=== PATIENT | male | born 1985 | race African-American/Black ===

== ENCOUNTER 2017-12-16 00:36 | Emergency (ER) | payer MEDICARE, MEDICAID ==
[~2017-12-16] VITALS: Ht 182.9 cm; Wt 79.8 kg
[~2017-12-16 00:36] MED LIST: ALBU8.5H5 INH; ARIP400S3 IM; BECL8.7A7 IH; BECL8.7A7 INH; GABA300C10 PO; GABA600T2 PO; HYDR-3237 PO; LORA10TA3 PO; METH500T7 PO; NAPR-850 PO; NAPR500T8 PO; OXYC5CAP2 PO; PROM25TA10 PO; QUET400T PO; QUET400T4 PO
[2017-12-16 00:39] VITALS: BP 120/70
[2017-12-16] MEDS ORDERED: DIPHENHYDRAMINE 25 MG CAPSULE ONE (01:20)
[2017-12-16] MEDS ORDERED: KETOROLAC 30 MG/1 ML ONE (01:20)
[2017-12-16] MEDS ORDERED: KETOROLAC 30 MG/1 ML IM ONE (01:30)
[2017-12-16] MEDS ORDERED: DIPHENHYDRAMINE 25 MG CAPSULE PO ONE (01:30)
[2017-12-16] MEDS ORDERED: PROCHLORPERAZINE 5 MG TABLET PO ONE (01:30)
== END 2017-12-16 02:11 | disposition home or self-care (01) ==
LOC: ED 02:05
DX: G43.009 Migraine without aura, not intractable, without status migrainosus (principal); H53.149 Visual discomfort, unspecified; F17.200 Nicotine dependence, unspecified, uncomplicated; F12.10 Cannabis abuse, uncomplicated
CPT/HCPCS: 96372; 99283; J1885; Q0163; Q0164

== ENCOUNTER 2018-01-31 13:16 | Emergency (ER) | payer MEDICARE, MEDICAID ==
[~2018-01-31] VITALS: Ht 176.5 cm; Wt 79.2 kg
[2018-01-31 13:34] VITALS: BP 118/76
== END 2018-01-31 14:30 | disposition home or self-care (01) ==
LOC: ED 14:25
DX: L03.116 Cellulitis of left lower limb (principal); L03.115 Cellulitis of right lower limb; J45.909 Unspecified asthma, uncomplicated; F31.9 Bipolar disorder, unspecified; M19.90 Unspecified osteoarthritis, unspecified site
CPT/HCPCS: 82962; 99283

== ENCOUNTER 2018-04-03 23:18 | Emergency (ER) | payer MEDICARE ==
[~2018-04-03] VITALS: Ht 175.3 cm; Wt 88.9 kg
[2018-04-03 23:24] VITALS: BP 120/80
== END 2018-04-04 00:18 | disposition home or self-care (01) ==
LOC: ED 23:32
DX: H57.12 Ocular pain, left eye (principal); H57.8 Other specified disorders of eye and adnexa; H54.7 Unspecified visual loss; M79.7 Fibromyalgia; J45.909 Unspecified asthma, uncomplicated
CPT/HCPCS: 99283

== ENCOUNTER 2018-05-28 13:38 | Emergency (ER) | payer MEDICARE, MEDICAID ==
[~2018-05-28] VITALS: Ht 177.8 cm; Wt 79.3 kg
[2018-05-28 13:41] VITALS: BP 96/62
[2018-05-28] MEDS ORDERED: ONDANSETRON ODT 8 MG PO ONE (14:00)
[2018-05-28] MEDS ORDERED: HYDROcodone/APAP 5/325 TABLET PO ONE (14:00)
[2018-05-28] MEDS ORDERED: HYDROcodone/APAP 5/325 TABLET ONE (14:18)
[2018-05-28] MEDS ORDERED: ONDANSETRON ODT 4 MG ONE (14:18)
== END 2018-05-28 14:48 | disposition home or self-care (01) ==
LOC: ED 14:29
DX: G43.009 Migraine without aura, not intractable, without status migrainosus (principal); J00 Acute nasopharyngitis [common cold]; J45.909 Unspecified asthma, uncomplicated; F41.1 Generalized anxiety disorder; F31.9 Bipolar disorder, unspecified; F17.200 Nicotine dependence, unspecified, uncomplicated
CPT/HCPCS: 71046; 99284; Q0162

== ENCOUNTER 2018-08-01 22:05 | Emergency (ER) | payer MEDICARE, MEDICAID ==
[~2018-08-01] VITALS: Ht 175.3 cm; Wt 82.5 kg
[2018-08-01 22:10] VITALS: BP 120/71
== END 2018-08-01 23:22 | disposition home or self-care (01) ==
LOC: ED 23:18
DX: M72.2 Plantar fascial fibromatosis (principal); J45.909 Unspecified asthma, uncomplicated
CPT/HCPCS: 99282